=== PATIENT | male | born 1960 | race Caucasian/White ===

== ENCOUNTER 2021-10-08 11:06 | Emergency (ER) | payer OTHER ==
[~2021-10-08 11:06] MED LIST: ALEVE220 M1 PO; ASCORBIC ACID500 MG PO; CENTRUM SILVER1 EAC2 PO; CLARITIN10 MG PO; FLOMAX 0.4 MG0.4 MG PO; LORCET PLUS 7.1 EACH PO; LOVAZA1 GM PO; NORCO 5-325 TA1 EACH PO; PHENERGAN25 M1 PO; SYNTHROID50 MCG PO; ZOFRAN4 MG PO
[2021-10-08 13:07] LABS: BASOPHIL 0.3 % (0-2); EOSINOPHIL 0.4 % (0-5); HCT 51.3 % (42.0-52.0); HGB 16.5 g/dl (13.2-18.0); LYMPHOCYTE 11.7 % (15-48); MCH 28.8 pg (25.0-31.0); MCHC 32.2 g/dL (32.0-36.0); MCV 89.7 fL (78.0-100.0); MONOCYTE 9.2 % (0-12); MPV 9.7 fL (6.0-9.5); NRBC 0; PLT 275 K/uL (150-400); RBC 5.72 M/uL (4.70-6.00); RDW 13.3 % (11.5-14.0); WBC 14.2 K/uL (4.0-10.5)
[2021-10-08 13:07] LABS: BILIRUBIN 1+ mg/dL (NEGATIVE); BLOOD TRACE-LYSED Ery/uL (NEGATIVE); CLARITY CLEAR (CLEAR); COLOR YELLOW (YELLOW); GLUCOSE (U) NORMAL (NORMAL); LEUKOCYTES NEGATIVE Leu/uL (NEGATIVE); NITRITE NEGATIVE (NEGATIVE); PROTEIN NEGATIVE (NEGATIVE); SPECIFIC GRAVITY >=1.030 (1.001-1.030); UROBILINOGEN 0.2 mg/dL (0.2-1.0); pH 5.5 (5.0-9.0)
[2021-10-08 13:16] LABS: BACTERIA TRACE; MUCOUS MODERATE; URINARY RBC RARE
[2021-10-08 13:18] LABS: ALBUMIN 3.7 g/dL (3.4-5.0); BILIRUBIN - TOTAL 0.8 mg/dL (0.2-1.0); BUN/CREAT RATIO (CALC) 14.4 RATIO; CREATININE 0.97 mg/dL (0.67-1.17); GLOBULIN (CALCULATION) 3.9 g/dL; TOTAL PROTEIN 7.6 g/dL (6.4-8.2)
[2021-10-08 13:22] LABS: LACTIC ACID 1.2 mmol/L (0.4-1.9)
[2021-10-08 15:17] LABS: CHOLESTEROL 178 mg/dL (<200); HDL 40 mg/dL (40-60); LDL - DIRECT 111 mg/dL (<100); TRIGLYCERIDES 102 mg/dL (<150)
[2021-10-08] MEDS ORDERED: METRONIDAZOLE500 MG PO (15:21)
== END 2021-10-08 16:01 | disposition home or self-care (01) ==
LOC: FER 11:06
PROVIDERS: Emergency Medicine
DX: K52.9 Noninfective gastroenteritis and colitis, unspecified (principal); E78.5 Hyperlipidemia, unspecified; E03.9 Hypothyroidism, unspecified; E66.9 Obesity, unspecified; Z79.899 Other long term (current) drug therapy; Z79.890 Hormone replacement therapy
CPT/HCPCS: 36415; 80053; 80061; 81001; 83605; 83690; 85025; J7030; Q9967